=== PATIENT | female | born 1975 | race Caucasian/White ===

== ENCOUNTER 2020-04-09 10:33 | Emergency (ER) | payer BC, OTHER ==
[2020-04-09 11:03] VITALS: RESP 18; TEMP 98.4
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
--- NOTE | 2020-04-09 12:03 | XR ---
EXAMINATION TYPE: XR pelvis AP view DATE OF EXAM: 04/09/2020 CLINICAL HISTORY: pain TECHNIQUE: Single view the pelvis is submitted. FINDINGS: No evidence for fracture, dislocation or bony lesion. Joint spaces are well-preserved. S I joints appear symmetric. IMPRESSION: 1. No acute fracture or dislocation seen. ICD 10 NO FRACTURE, INITIAL EVALUATION
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
[2020-04-09 12:48] VITALS: BP 148/108; PULSE 77
== END 2020-04-09 12:48 | disposition home or self-care (01) ==
LOC: EC 10:33
DX: M25.552 Pain in left hip (principal); S13.4XXA Sprain of ligaments of cervical spine, initial encounter; F17.200 Nicotine dependence, unspecified, uncomplicated; V43.52XA Car driver injured in collision with other type car in traffic accident, initial encounter; Y93.89 Activity, other specified; Y92.410 Unspecified street and highway as the place of occurrence of the external cause
CPT/HCPCS: 70450; 72125; 72170; 99284

== ENCOUNTER 2022-08-20 18:40 | Emergency (ER) | payer BC, OTHER ==
[2022-08-20] MEDS ORDERED: DIPH,PERTUS(ACELL)TETVAC-LF 0.5 ML VIAL IM ONE (18:53)
[2022-08-20] MEDS ORDERED: LIDOCAINE 1% INJ 10MG/ML (30 ML VIAL-PF) SQ ONE (18:53)
[2022-08-20] MEDS ORDERED: TOPICAL SKIN ADHESIVE 1 EACH AMP TOPICAL ONE (19:16)
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
[2022-08-20 20:02] VITALS: BP 134/86; PULSE 74; RESP 20; TEMP 98.7
== END 2022-08-20 20:02 | disposition home or self-care (01) ==
LOC: EC 18:40
DX: S61.219A Laceration without foreign body of unspecified finger without damage to nail, initial encounter (principal); I10 Essential (primary) hypertension; F17.200 Nicotine dependence, unspecified, uncomplicated; Z23 Encounter for immunization; W50.1XXA Accidental kick by another person, initial encounter
CPT/HCPCS: 90715; 99283; 90471; 12001; J2001